=== PATIENT | male | born 1945 | race Two or more races ===

== ENCOUNTER 2020-07-08 16:34 | Inpatient (IN) | payer OTHER ==
[~2020-07-08] VITALS: Ht 167.6 cm; Wt 102.9 kg
[2020-07-08 17:17] LABS: Basophils # (auto) 0 10 ^3/uL (0-0.2); Basophils % (auto) 0.7 % (0.0-2.0); Eosinophils # (auto) 0.1 10 ^3/uL (0-0.8); Eosinophils % (auto) 2.2 % (0.0-7.0); Hematocrit 42.6 % (41.0-53.0); Hemoglobin 14.7 g/dL (13.5-17.5); Lymphocytes % (auto) 18.5 % (10.0-50.0); Mean Corpuscular Hemoglobin 33.4 pg (28.0-32.0); Mean Corpuscular Hgb Conc. 34.5 g/dL (32.0-36.0); Monocytes # (auto) 0.5 10 ^3/uL (0-1.3); Monocytes % (auto) 10.1 % (0.0-12.0); Neutrophils # (auto) 3.7 10 ^3/uL (1.6-8.6); Neutrophils % (auto) 68.5 % (37.0-80.0); Nucleated Red Blood Cells % 0.1 %; Platelet Count (auto) 224 10^3/uL (140-450); Red Cell Distribution Width 13.5 % (11.8-14.3); White Blood Cell 5.3 10^3/uL (4.4-10.8)
[2020-07-08 17:30] LABS: INR 1.06 (0.9-1.15); Partial Thromboplastin Time 27.9 sec (23.0-31.2)
[2020-07-08 17:34] LABS: Alanine Aminotransferase 23 U/L (16-61); Albumin 3.6 g/dL (3.4-5.0); Anion Gap 10 (5-15); Aspartate Aminotransferase 17 U/L (15-37); BUN/Creatinine Ratio 15.5; Blood Urea Nitrogen 16 mg/dL (7-18); Calcium 8.6 mg/dL (8.5-10.1); Carbon Dioxide 20 mmol/L (21-32); Chloride 108 mmol/L (98-107); GFR African American 91 mL/min; GFR Non-African American 75 mL/min; Glucose 112 mg/dL (74-106); Magnesium 2.2 mg/dL (1.6-2.6); Potassium 4.1 mmol/L (3.5-5.1); Sodium 138 mmol/L (136-145)
[2020-07-08 17:39] LABS: Alkaline Phosphatase 73 U/L (45-117); Bilirubin, Total 0.4 mg/dL (0.2-1.0); Total Protein 7.4 g/dL (6.4-8.2)
[2020-07-08] MEDS ORDERED: ONDANSETRON HCL 4 MG/2 ML VIAL IV PRN (21:30)
[2020-07-08] MEDS ORDERED: MORPHINE SULF INJ 2 MG/ML SYRINGE 1ML IV PRN (21:30)
[2020-07-08] MEDS ORDERED: NITROGLYCERIN 0.4 MG SL TAB SL PRN (21:30)
[2020-07-08] MEDS: ATORVASTATIN 20 MG TAB PO SCH (22:12)
[2020-07-08] MEDS: ACETAMINOPHEN 325 MG TAB PO PRN (22:12)
[2020-07-08] MEDS: APIXABAN 5 MG TAB PO SCH (22:12)
[2020-07-08] MEDS: FAMOTIDINE 20 MG TAB PO SCH (22:12)
[2020-07-08 23:30] VITALS: BP 122/81
[2020-07-09] MEDS: TEMAZEPAM 15 MG CAP PO PRN ×2 (01:14→23:27)
[2020-07-09] MEDS ORDERED: APIX5TAB PO (01:51)
[2020-07-09] MEDS ORDERED: METO25TA5 PO (01:51)
[2020-07-09] MEDS ORDERED: SIMV5TAB50 PO (01:51)
[2020-07-09 05:00] VITALS: BP 137/74
[2020-07-09] MEDS: ACETAMINOPHEN 325 MG TAB PO PRN ×2 (06:14→19:59)
[2020-07-09 06:38] LABS: Basophils # (auto) 0 10 ^3/uL (0-0.2); Basophils % (auto) 0.7 % (0.0-2.0); Eosinophils # (auto) 0.2 10 ^3/uL (0-0.8); Eosinophils % (auto) 3.9 % (0.0-7.0); Hematocrit 41.3 % (41.0-53.0); Hemoglobin 14.1 g/dL (13.5-17.5); Lymphocytes # (auto) 1.1 10 ^3/uL (0.4-5.4); Lymphocytes % (auto) 27.4 % (10.0-50.0); Mean Corpuscular Hemoglobin 33.3 pg (28.0-32.0); Mean Corpuscular Hgb Conc. 34.1 g/dL (32.0-36.0); Mean Corpuscular Volume 97.7 fL (80.0-100.0); Monocytes # (auto) 0.6 10 ^3/uL (0-1.3); Monocytes % (auto) 15.7 % (0.0-12.0); Neutrophils # (auto) 2.1 10 ^3/uL (1.6-8.6); Neutrophils % (auto) 52.3 % (37.0-80.0); Nucleated Red Blood Cells % 0.1 %; Platelet Count (auto) 175 10^3/uL (140-450); Red Blood Cells 4.23 10^6/uL (4.5-5.90); Red Cell Distribution Width 13.3 % (11.8-14.3)
[2020-07-09 06:47] LABS: Calcium 8.3 mg/dL (8.5-10.1); Potassium 3.8 mmol/L (3.5-5.1)
[2020-07-09 06:49] LABS: BUN/Creatinine Ratio 16.2
[2020-07-09] MEDS: APIXABAN 5 MG TAB PO SCH ×2 (10:23→23:26)
[2020-07-09] MEDS: FAMOTIDINE 20 MG TAB PO SCH ×2 (10:23→23:26)
[2020-07-09] MEDS: FUROSEMIDE 40 MG TAB PO SCH (10:25)
[2020-07-09] MEDS: ASPirin 81 mg TAB PO SCH (10:25)
[2020-07-09] MEDS: METOPROLOL SUCCINATE XL 50 MG TAB PO SCH (10:26)
[2020-07-09 12:48] VITALS: BP 129/77
[2020-07-09 16:44] VITALS: BP 100/70
[2020-07-09 21:57] VITALS: BP 122/53
[2020-07-09] MEDS: ATORVASTATIN 20 MG TAB PO SCH (23:26)
[2020-07-10 05:02] VITALS: BP 120/70
[2020-07-10] MEDS ORDERED: ADENOSINE 86 MG in GIVE UN-DILUTED 0 ML IV STA (08:10)
[2020-07-10 09:00] VITALS: BP 119/71
[2020-07-10] MEDS: ASPirin 81 mg TAB PO SCH (12:04)
[2020-07-10] MEDS: APIXABAN 5 MG TAB PO SCH (12:05)
[2020-07-10] MEDS: FAMOTIDINE 20 MG TAB PO SCH (12:05)
[2020-07-10] MEDS: FUROSEMIDE 40 MG TAB PO SCH (12:05)
[2020-07-10] MEDS: METOPROLOL SUCCINATE XL 50 MG TAB PO SCH (12:06)
[2020-07-10 13:00] VITALS: BP 115/79
[2020-07-10 17:00] VITALS: BP 135/69
[2020-07-10 19:44] VITALS: BP 115/75
== END 2020-07-10 21:30 | disposition home or self-care (01) | DRG 309 ==
LOC: ER 16:34 → EDBD 16:34 → TELE 21:26 → TELE-CENTR 23:22
PROVIDERS: ADMIT Nurse Practitioner; ATTEND Internal Medicine
DX: I48.0 Paroxysmal atrial fibrillation (principal); D68.9 Coagulation defect, unspecified; I11.0 Hypertensive heart disease with heart failure; I25.10 Atherosclerotic heart disease of native coronary artery without angina pectoris; E66.9 Obesity, unspecified; Z20.822 Contact with and (suspected) exposure to COVID-19; Z68.37 Body mass index [BMI] 37.0-37.9, adult; E78.5 Hyperlipidemia, unspecified; R73.03 Prediabetes; Z79.01 Long term (current) use of anticoagulants; Z82.49 Family history of ischemic heart disease and other diseases of the circulatory system; Z98.61 Coronary angioplasty status; Z95.1 Presence of aortocoronary bypass graft; R07.9 Chest pain, unspecified; I50.9 Heart failure, unspecified
CPT/HCPCS: 36415; 71045; 78452; 80048; 80053; 82728; 83735; 83880; 84443; 84484; 85025; 85379; 85610; 85730; 87426; 93005; 93017; 93306; G0378; J0153

== ENCOUNTER 2020-10-07 16:52 | Emergency (ER) | payer OTHER ==
[~2020-10-07] VITALS: Ht 30.5 cm; Wt 0.5 kg
[~2020-10-07 16:52] MED LIST: APIX5TAB PO; METO25TA5 PO; SIMV5TAB50 PO
[2020-10-07] MEDS ORDERED: AMIODARONE HCL (50 MG/ ML) 3 ML VIAL IV ONE (16:53)
[2020-10-07] MEDS ORDERED: EPINEPHrine HCL 1 MG/10 ML SYRG IV ONE (16:53)
[2020-10-07] MEDS ORDERED: SODIUM BICARBONATE 8.4% INJ 50ML SYRINGE IV ONE (16:53)
[2020-10-07] MEDS ORDERED: INSULIN LANTUS (GLARGINE) 1 /0.01ml (100units/ml) SC ONE (17:00)
[2020-10-07] MEDS ORDERED: InsuLIN R (HUMAN) 100 UNITS in SODIUM CHL 0.9% 99 ML IV SCH (17:00)
[2020-10-07] MEDS ORDERED: DEXTROSE (50%) 50ML SYRG IV PRN (17:00)
[2020-10-07] MEDS ORDERED: SODIUM CHLORIDE 0.9% 1,000 ML IV ONE (17:15)
[2020-10-07] MEDS ORDERED: SODIUM CHLORIDE 0.9% 500 ML IV ONE (17:15)
[2020-10-07] MEDS ORDERED: ACETAMINOPHEN 650 MG RECT SUPP PR ONE (17:15)
[2020-10-07] MEDS ORDERED: CALCIUM GLUC 1,000mg/50ml-NS 50 ML IV ONE (17:15)
[2020-10-07] MEDS ORDERED: dilTIAZem 25 MG/5 ML VIAL IV ONE ×2 (17:15→21:53)
[2020-10-07] MEDS ORDERED: SODIUM CHLORIDE 0.9% 1,000 ML IVB ONE (17:15)
[2020-10-07 17:24] LABS: Urine Bacteria NONE SEEN /hpf (None Seen); Urine Blood 2+ /uL (Negative); Urine Hyaline Cast FEW /lpf (0 - 2); Urine Mucus FEW (None Seen); Urine Specific Gravity 1.023 (1.001-1.035); Urine WBC 2 /hpf (0 - 3)
[2020-10-07 17:35] LABS: Hemoglobin 8.4 g/dL (13.5-17.5); Red Blood Cells 2.74 10^6/uL (4.5-5.90)
[2020-10-07 17:37] LABS: Hematocrit 24.2 % (41.0-53.0); Mean Corpuscular Hemoglobin 30.7 pg (28.0-32.0); Mean Corpuscular Hgb Conc. 34.8 g/dL (32.0-36.0); Mean Corpuscular Volume 88.4 fL (80.0-100.0); Platelet Count (auto) 213 10^3/uL (140-450); Red Cell Distribution Width 14.4 % (11.8-14.3)
[2020-10-07 17:40] LABS: Alcohol, Urine < 3.0 mg/dL (0-10); Amphetamine Screen, Urine NEGATIVE (NEGATIVE); Barbiturate Scree,Urine NEGATIVE (NEGATIVE); Benzodiazephine Screen, Urine NEGATIVE (NEGATIVE); Cannabinoid Screen, Urine NEGATIVE (NEGATIVE); Cocaine Screen, Urine NEGATIVE (NEGATIVE); Opiate Scree,Urine POSITIVE (NEGATIVE); Phencyclidine Screen, Urine NEGATIVE (NEGATIVE)
[2020-10-07 17:43] LABS: Basophils % (manual) 0 (0.0-2.0); Blast Cells 0; Eosinophils % (manual) 0 (0-7); Promyelocytes % 0
[2020-10-07] MEDS ORDERED: ONDANSETRON HCL 4 MG/2 ML VIAL IV ONE (17:45)
[2020-10-07] MEDS ORDERED: HYDROmorphone HCL 2 MG/ML VL IV ONE (17:45)
[2020-10-07] MEDS ORDERED: ACETAMINOPHEN 325 MG TAB PO ONE (17:51)
[2020-10-07 17:52] LABS: INR 1.55 (0.9-1.15); Partial Thromboplastin Time 43.6 sec (23.0-31.2)
[2020-10-07 17:57] LABS: Calcium 7.5 mg/dL (8.5-10.1); Magnesium 2.2 mg/dL (1.6-2.6); Potassium 4.4 mmol/L (3.5-5.1)
[2020-10-07] MEDS ORDERED: ACCU-CHEK COMFORT CURVE STRIP VI SCH (18:00)
[2020-10-07 18:03] LABS: BUN/Creatinine Ratio 24.4; Bilirubin, Total 1.1 mg/dL (0.2-1.0); Total Protein 5.5 g/dL (6.4-8.2)
[2020-10-07] MEDS ORDERED: AMIODARONE HCL 150 MG in D5W 5% 100 ML IV ONE (18:30)
[2020-10-07] MEDS ORDERED: AMIODARONE 450mg/250ml AE 250 ML IV SCH (18:45)
[2020-10-07 18:56] LABS: Band Neutrophils % (manual) 7; Lymphocytes % (manual) 43 (10.0-50.0); Metamyelocytes % 6; Monocytes % (manual) 11 (0-12); Myelocytes % 3; Reactive Lymphocytes 6
[2020-10-07] MEDS ORDERED: VANCOMYCIN 1GM/250ML 250 ML IV ONE (20:30)
[2020-10-07] MEDS ORDERED: PIPERACILLIN-TAZOB 3.375GM 100 ML IV ONE (20:30)
[2020-10-07] MEDS ORDERED: IOHEXOL 300 MG/ML 100ML BOTTLE IJ ONE (20:48)
[2020-10-07] MEDS ORDERED: ETOMIDATE (2MG/ML) 20ML VIAL IV ONE (21:05)
[2020-10-07] MEDS ORDERED: PROPOFOL 0 ML IV ONE (21:05)
[2020-10-07] MEDS ORDERED: SUCCINYLCHOLINE CHLORIDE 20 MG/ML 10ML VIAL IV ONE (21:05)
[2020-10-07] MEDS ORDERED: NOREPINEPHRINE 8 MG/250ML KIT 250 ML IV ONE (21:58)
[2020-10-07] MEDS ORDERED: ALBUMIN 5% 250 ML IV ONE (21:59)
[2020-10-07 22:00] VITALS: BP 88/19
[2020-10-07] MEDS ORDERED: EPINEPHrine HCL 1 MG/10 ML SYRG ONE (22:16)
[2020-10-08] MEDS ORDERED: ALBUMIN 5% 250 ML IV ONE (00:30)
[2020-10-08] MEDS ORDERED: AMIODARONE 450mg/250ml AE 250 ML IV SCH (00:45)
[2020-10-08] MEDS ORDERED: INSULIN LANTUS (GLARGINE) 1 /0.01ml (100units/ml) SC SCH (10:00)
== END 2020-10-10 16:50 | disposition still patient (30) ==
LOC: ER 16:52 → EDBD 16:52 → ER 10-10 16:50
DX: I48.0 Paroxysmal atrial fibrillation (principal); C25.9 Malignant neoplasm of pancreas, unspecified; D70.9 Neutropenia, unspecified; I25.810 Atherosclerosis of coronary artery bypass graft(s) without angina pectoris; I11.0 Hypertensive heart disease with heart failure; I50.9 Heart failure, unspecified; E78.5 Hyperlipidemia, unspecified; Z95.1 Presence of aortocoronary bypass graft; Z79.899 Other long term (current) drug therapy; Z20.822 Contact with and (suspected) exposure to COVID-19
CPT/HCPCS: 36415; 36600; 71045; 71260; 74177; 80053; 80307; 81001; 82805; 82962; 83690; 83735; 83880; 84443; 84484; 85007; 85027; 85379; 85610; 85730; 87070; 87077; 87186; 87205; 87426; 92950; 93005; 94002; 96365; 96366; 96367; 96375; 99291; J0171; J0282; J0330; J0610; J1170; J2405; J2543; J3370; J7030; J7060; P9045; Q9967; J2704